=== PATIENT | female | born 2000 | race Caucasian/White ===

== ENCOUNTER 2025-03-26 06:53 | Emergency (ER) | payer BC ==
[~2025-03-26] VITALS: Ht 157.5 cm; Wt 52.0 kg
[2025-03-26 07:01] VITALS: O2SAT 99
[2025-03-26 07:08] VITALS: BP 125/77; PULSE 98; RESP 16; TEMP 36.7; O2SAT 100
[2025-03-26 07:39] LABS: BASOPHILS % 1.1 % (0.0-2.0); EOSINOPHILS % 1.1 % (0.0-5.0); HEMATOCRIT. 41.5 % (36.0-48.0); HEMOGLOBIN. 14.1 g/dL (12.0-16.0); LYMPHOCYTES % 32.0 % (20.0-50.0); MEAN PLATELET VOLUME 8.3 fl (7.4-10.4); MONOCYTES % 7.7 % (2.0-8.0); NEUTROPHILS % 58.1 % (40.0-76.0); PLATELET 253 x1000/uL (130-400); RED BLOOD CELL COUNT 4.85 mill/uL (4.2-5.4); RED CELL DISTRIBUTION WIDTH 13.8 % (11.6-14.6)
[2025-03-26] MEDS: SODIUM CHLORIDE 0.9% 1,000 ML IV ONE (07:45)
[2025-03-26] MEDS: METOCLOPRAMIDE HCL 10MG/2ML VIAL IV ONE (07:45)
[2025-03-26 07:55] LABS: CREATININE 0.9 mg/dL (0.6-1.0); UREA NITROGEN BLOOD 7 mg/dL (9-23)
[2025-03-26 08:02] LABS: HCG SCREEN NEGATIVE
[2025-03-26] MEDS: ACETAMINOPHEN 1000MG/100ML 100 ML IV ONE (08:23)
[2025-03-26 10:37] LABS: CLARITY URINE CLEAR (CLEAR); COLOR URINE YELLOW (YELLOW); GLUCOSE URINE NEGATIVE (NEGATIVE); KETONES URINE NEGATIVE (NEGATIVE); LEUKOCYTE ESTERASE URINE NEGATIVE (NEGATIVE); NITRITE URINE NEGATIVE (NEGATIVE); OCCULT BLOOD URINE NEGATIVE (NEGATIVE); PH URINE 6.5 (4.5-8.0); PROTEIN URINE NEGATIVE (NEGATIVE); SPECIFIC GRAVITY URINE 1.006 (1.005-1.030); UROBILINOGEN URINE 0.2 E.U./dL (0.2-1.0)
== END 2025-03-26 09:30 | disposition left against medical advice (07) ==
LOC: ER 06:53 → CMPBEDREQ 09:37
DX: R11.2 Nausea with vomiting, unspecified (principal); E86.0 Dehydration; K59.00 Constipation, unspecified; Z91.018 Allergy to other foods
CPT/HCPCS: 80048; 81003; 81025; 84703; 85025; 36415; 96361; 96365; 96375; 99284; J2765; J7030; Z7610 ×3; J0131